=== PATIENT | male | born 1995 | race Caucasian/White ===

== ENCOUNTER 2018-03-05 15:38 | Emergency (ER) | payer MEDICAID ==
[~2018-03-05] VITALS: Ht 177.8 cm; Wt 65.0 kg
[2018-03-05 15:55] VITALS: BP 142/103
[2018-03-05] MEDS ORDERED: TRIA15CR61 TOP (16:30)
[2018-03-05] MEDS ORDERED: diphenhydrAMINE 25mg capsule PO ONE (16:30)
[2018-03-05] MEDS ORDERED: triamcinolone acetonide 40mg/ml inj IM ONE (16:30)
[2018-03-05] MEDS ORDERED: DIPH25CA83 PO (16:30)
== END 2018-03-05 16:59 | disposition home or self-care (01) ==
LOC: ER 15:38
DX: L23.7 Allergic contact dermatitis due to plants, except food (principal); F12.10 Cannabis abuse, uncomplicated; F14.10 Cocaine abuse, uncomplicated
CPT/HCPCS: 96372; 99283; J3301; Q0163

== ENCOUNTER 2025-08-30 12:57 | Emergency (ER) | payer MEDICAID, OTHER ==
[~2025-08-30] VITALS: Ht 177.8 cm; Wt 68.3 kg
[~2025-08-30 12:57] MED LIST: DIPH25CA83 PO
[2025-08-30] MEDS ORDERED: CefTRIAXone 1000mg IM Kit (w/lidocaine diluent) IM ONE (14:05)
--- NOTE | 2025-08-30 14:13 | Physician Documentation ---
History of Present Illness ~ Chief Complaint: STD Stated Complaint: STD TEST Time Seen by MD: 13:28 HPI This is a 29-year-old male who presents with concern for STI after one of his sexual partners tested positive for chlamydia and Trichomonas, patient reports no physical symptoms. Medication Reconciliation Allergies: Coded Allergies: No Known Allergies (Unverified , 08/30/25) Scheduled Diphenhydramine Hcl (Benadryl), 1 CAP PO HS Doxycycline Hyclate (Doxycycline Hyclate), 1 CAP PO Q12H Past Medical History Past Medical History: No Pertinent History Past Surgical History: noncontributory Alcohol Use: Occasionally Drug Use: marijuana, cocaine Lives with: Family Lives In: Home Review of Systems ROS As stated above in the HPI, otherwise all systems are reviewed and negative. Physical Exam Vital Signs: Temperature: 97.3, Heart Rate: 96, Respiratory Rate: 18, BP: 146/96, Pulse Oximetry: 98, Weight: 68.300 Oxygen Flow Rate: 0 Physical Exam VITALS: Reviewed and as above. GENERAL: Alert, nontoxic appearing, no apparent distress. RESPIRATORY: No increased work of breathing, no respiratory distress, speaking in full clear sentences Progress Results/Orders Results/Orders Orders - DIONTE PRECIADO Chlam/Gc Amp Ur (08/30/25 14:01) Completed Orders - DIONTE PRECIADO Doxycycline 100mg Capsule (Vibramycin 10 (08/30/25 14:01) Metronidazole Tablet (Flagyl Tablet) (08/30/25 14:05) Ceftriaxone 500 Im W/Lidocaine (Rocephin (08/30/25 14:15) Medications Received in ER Medications (Trade) Dose Ordered Sig/[place] Route PRN Reason Start Time Stop Time Status Last Admin Dose Admin (VIBRAMYCIN 100mg capsule) 100 mg ONCE STAT PO 08/30/25 14:01 08/30/25 14:12 DC 08/30/25 14:54 100 MG (Flagyl tablet) 2,000 mg ONCE ONCE PO 08/30/25 14:05 08/30/25 14:12 DC 08/30/25 14:55 2,000 MG (Rocephin 500MG IM kit (w/1% LIDOcaine)) 500 mg ONCE ONCE IM 08/30/25 14:15 08/30/25 14:16 DC 08/30/25 14:55 500 MG Vital Signs 10/9/25 10/9/25 13:08 15:02 Temp 97.3 97.3 Pulse 96 78 Resp 18 18 B/P (MAP) 146/96 126/78 Pulse Ox 98 99 O2 Flow Rate 0 Laboratory Tests Test 08/30/25 14:29 Medical Decision Making Findings This 29-year-old male presented requesting treatment and testing for STI due to having his sexual partners tested positive for Trichomonas and chlamydia, patient reported both have had multiple unprotected partners. Patient reported no physical symptoms including no fever, dysuria, penile discharge, rash, or penile lesions. Due to exposure to chlamydia and Trichomonas along with risk factors due to sex with multiple unprotected partners patient will be treated for gonorrhea, chlamydia, and Trichomonas, patient will be tested for syphilis, HIV, gonorrhea, and chlamydia. Patient has been advised that he will require further testing for other possibly sexually transmitted disease including hepatitis B and C. Patient is otherwise well-appearing and appropriate for outpatient follow up. Patient has been provided home care instructions, follow up instructions, and return to care precautions which he verbalized understanding of. Genital Diff Dx:Considerations: Include: Abscess, Balanitis, Cellulitis, Epididymitis, Gayla's gangrene, Foreign body, Facture penis, Prostatitis, Syphilis, Testicular torsion, Urethritis, Urethritis-chlamydial, Urethritis- gonococcal, UTI, Other (HIV) Departure Time of Disposition: 14:48 Disposition: 01 HOME / SELF CARE / HOMELESS Impression: Primary Impression: Sexually transmitted disease Additional Impressions: Exposure to chlamydia Trichomonas exposure Condition: Improved Discharge Instructions: Sexually Transmitted Disease Additional Instructions: Please take the prescribed antibiotic for the next week, do not have sex for this time.. I recommend repeat testing prior to resuming sexual activity. Follow up in one-week with medical records for your results of STI testing. Please follow up with your primary care provider in the next few days. Please return to the emergency department for any new or worsening concerning symptoms. Referrals: NO PRIMARY CARE PROVIDER (PCP) Prescriptions Doxycycline Hyclate (Doxycycline Hyclate) 100 Mg Capsule 1 CAP PO Q12H for 7 Days, #14 CAP Prov: DIONTE PRECIADO [employer] COUN[employer] 08/30/25 Education Educated: Patient Educated regarding: diagnosis, treatment, prognosis, need for follow up Signature Scribe Signature: No scribe Attestation: The note accurately reflects work and decisions made by me.MARIA D Hardy 08/30/25 21:33 DIONTE PRECIADO Aug 30, 2025 14:13
[2025-08-30] MEDS ORDERED: DOXY-11 PO (14:48)
[2025-08-30] MEDS: DOXYCYCLINE 100MG CAPSULE PO STA (14:54)
[2025-08-30] MEDS: CefTRIAXone 500MG IM Kit w/LIDOcaine IM ONE (14:55)
[2025-08-30 15:02] VITALS: BP 126/78; PULSE 78; RESP 18; TEMP 97.3; O2SAT 99
== END 2025-08-30 15:12 | disposition home or self-care (01) ==
LOC: ER 12:58
DX: A64 Unspecified sexually transmitted disease (principal); Z20.2 Contact with and (suspected) exposure to infections with a predominantly sexual mode of transmission
CPT/HCPCS: 36415; 87491; 87591; 96372; 99283; J0696